=== PATIENT | male | born 1965 | race Caucasian/White ===

== ENCOUNTER 2019-01-09 19:21 | Inpatient (IN) | payer BC, SELFPAY ==
[2019-01-09 20:18] LABS: #Eosinphils 0.3 thou/uL (0.0-0.7); #Lymphocytes 2.3 thou/uL (1.20-3.40); #Monocytes 0.7 thou/uL (0.11-0.59); #Neutrophils 2.6 thou/uL (1.40-6.50); %Basophils 0.6 % (0.0-1.0); %Eosinophils 4.3 % (0.0-10.0); %Lymphocytes 39.1 % (21.0-51.0); %Monocytes 11.4 % (0.0-10.0); %Neutrophils 44.6 % (42.0-75.0); Hemoglobin 10.5 g/dL (14.0-18.0); Mean Corpuscular HGB CONC 32.3 g/dL (32.0-36.0); Mean Corpuscular Hemoglobin 24.3 pg (27.0-31.0); Mean Corpuscular Volume 75.3 fL (78.0-98.0); Mean Platelet Volume 7.6 fL (7.4-10.4); Platelet Count 363 thou/uL (130-400); RBC Distribution Width 17.5 % (11.5-14.5); Red Blood Cell (RBC) Count 4.31 mill/uL (4.70-6.10); White Blood Cell (WBC) Count 5.9 thou/uL (4.8-10.8)
[2019-01-09] MEDS ORDERED: Diltiazem HCl 125 MG, Admixture Fee 1 EACH in Sodium Chloride 0.9% 100 ML IVPB SCH (20:30)
--- NOTE | 2019-01-09 20:30 | RAD ---
Chest one view HISTORY: Chest pain. FINDINGS: No comparison. Cardiac silhouette is magnified and enlarged. Pulmonary vasculature upper li mits of normal. Mediastinum is midline. No lobar consolidation or evidence of pneumothorax. IMPRESSION: Cardiomegaly. Borderline pulmonary vascular congestion.
[2019-01-09] MEDS ORDERED: Nitroglycerin 2% Ointment 1 INCH/1 GM Packet ONE (20:32)
[2019-01-09] MEDS ORDERED: Nitroglycerin 0.4 MG TAB 1 EACH ONE (20:32)
[2019-01-09 20:40] LABS: ALT (SGPT) 15 U/L (8-55); AST (SGOT) 20 U/L (5-34); Albumin 3.9 g/dL (3.5-5.0); Alkaline Phosphatase 100 U/L (40-150); Anion Gap 16 mmol/L (10-20); BUN (Urea Nitrogen) 9 mg/dL (8.4-25.7); Bilirubin, Total 0.2 mg/dL (0.2-1.2); Calc. Creatinine Clearance 0 mL/min (70-130); Calcium 7.9 mg/dL (7.8-10.44); Carbon Dioxide 22 mmol/L (22-29); Chloride 110 mmol/L (98-107); Estimated GFR-MDRD Greater than 90; Glucose 116 mg/dL (70-105); Magnesium 2.1 mg/dL (1.6-2.6); Protein, Total 6.9 g/dL (6.0-8.3); Sodium 144 mmol/L (136-145)
[2019-01-09] MEDS ORDERED: Aspirin Chewable 81 MG TAB ONE (20:46)
[2019-01-09 20:48] LABS: CK (CPK) 124 U/L (30-200); Lipase 35 U/L (8-78)
[2019-01-09] MEDS ORDERED: Morphine 4 MG/ML VIAL ONE (21:20)
[2019-01-10 01:03] LABS: Bilirubin Negative (Negative); Blood, Urine Negative (Negative); Clarity Clear (Clear); Glucose, Urine (Dipstick) Normal (Negative); Leukocyte Negative Leu/uL (Negative); Nitrite Negative (Negative); Protein, Urine (Dipstick) 20 mg/dL (Neg-Trace); Urobilinogen Normal mg/dL (Less than 2)
[2019-01-10] MEDS ORDERED: Labetalol HCl 100 MG/20 ML VIAL ONE (03:54)
[2019-01-10] MEDS ORDERED: Ondansetron ODT 4 MG TAB PO PRN (04:02)
[2019-01-10] MEDS ORDERED: Acetaminophen 650 MG Suppository PR PRN (04:02)
[2019-01-10] MEDS ORDERED: Nitroglycerin 0.4 MG TAB (25 Tab Bottle) SL PRN (04:04)
[2019-01-10] MEDS ORDERED: Ondansetron ODT 4 MG TAB ONE (04:06)
[2019-01-10] MEDS ORDERED: Labetalol 100 MG TAB ONE (04:06)
[2019-01-10] MEDS ORDERED: cloNIDine 0.1 MG TAB ONE (04:06)
[2019-01-10] MEDS ORDERED: Morphine 2 MG/ML SYRINGE ONE (04:20)
[2019-01-10] MEDS ORDERED: Nitroglycerin 50 MG/250 ML BOT 250 ML ONE (04:43)
[2019-01-10] MEDS ORDERED: Acetaminophen 1,000 MG in Premix Bag 1 BAG IVPB SCH (05:00)
[2019-01-10] MEDS ORDERED: Nitroglycerin 50 MG/250 ML BOT 250 ML IVPB SCH (05:00)
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
[2019-01-10] MEDS ORDERED: Nitroglycerin 2% Ointment 1 INCH/1 GM Packet TOP SCH (06:00)
[2019-01-10 06:19] VITALS: BMI 53.1
[2019-01-10] MEDS: Promethazine HCl 25 MG/ML VIAL IM/IV PRN ×3 (06:26→17:50)
[2019-01-10] MEDS ORDERED: Ondansetron PF 4 MG/2 ML Vial IVP PRN (06:28)
[2019-01-10] MEDS ORDERED: Ondansetron ODT 4 MG TAB SL PRN (06:28)
[2019-01-10] MEDS ORDERED: Sodium Chloride 0.9% 1,000 ML IV SCH (06:28)
[2019-01-10] MEDS: Ondansetron PF 4 MG/2 ML Vial IVP PRN ×2 (07:34→16:16)
[2019-01-10] MEDS: Carvedilol 25 MG TAB PO SCH ×2 (07:36→16:28)
[2019-01-10] MEDS: Lisinopril 10 MG TAB PO SCH (07:36)
[2019-01-10] MEDS: Acetaminophen 325 MG TAB PO PRN ×2 (07:36→12:09)
[2019-01-10] MEDS ORDERED: Morphine 4 MG/ML VIAL ONE (07:55)
[2019-01-10] MEDS ORDERED: Carvedilol 6.25 MG TAB PO SCH (08:00)
[2019-01-10] MEDS ORDERED: Aspirin Chewable 81 MG TAB PO SCH (09:00)
[2019-01-10] MEDS ORDERED: Enoxaparin Sodium 40 MG/0.4 ML SYRINGE SC SCH (09:00)
[2019-01-10] MEDS: cloNIDine 0.1 MG TAB PO PRN (09:10)
[2019-01-10] MEDS ORDERED: niCARdipine 50 MG in Sodium Chloride 0.9% 250 ML 230 ML IVPB SCH (09:45)
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
[2019-01-10] MEDS ORDERED: NIFEdipine XL 30 MG TAB PO SCH (14:15)
--- NOTE | 2019-01-10 14:24 | PDOC.HOSPP ---
- Subjective Encounter Date: 01/10/19 Encounter Time: 14:22 Subjective: 53 y/o male with morbid obesity, CAD , HTN admitted with worsening chest pain and elevated HTN. Chest pain is better but persists. - Objective Vital Signs & Weight: Vital Signs (12 hours) Temp Pulse Resp BP Pulse Ox 01/10/19 12:00 97.8 F 01/10/19 09:10 199/107 H 01/10/19 08:02 96 21 H 100 01/10/19 08:00 97 01/10/19 07:36 219/107 H 01/10/19 07:00 97.9 F 01/10/19 06:20 98.0 F 01/10/19 02:37 91 15 100 Weight Weight 436 lb 8.244 oz Most Recent Monitor Data Heart Rate from ECG 94 NIBP 155/85 NIBP BP-Mean 103 Respiration from ECG 20 SpO2 98 I&O: 01/09/19 01/10/19 01/11/19 06:59 06:59 06:59 Intake Total 350 Output Total 500 Balance -150 Result Diagrams: 01/09/19 20:11 01/09/19 20:11 Hospitalist ROS - Medication Medications: Active Medications Generic Name Dose Route Start Last Admin Trade Name Freq PRN Reason Stop Dose Admin Acetaminophen 650 mg 01/10/19 04:02 01/10/19 12:09 Tylenol PO 650 mg Q4H PRN Administration Headache/Fever/Mild Pain (1-3) Carvedilol 25 mg 01/10/19 08:00 01/10/19 07:36 Coreg PO 25 mg BID-WM MABLE Administration Clonidine 0.1 mg 01/10/19 04:03 01/10/19 09:10 Catapres PO 0.1 mg Q4H PRN Administration BP>160/100 Enoxaparin Sodium 40 mg 01/10/19 09:00 01/10/19 12:09 Lovenox SC 40 mg 0900 MABLE Administration Lisinopril 10 mg 01/10/19 09:00 01/10/19 07:36 Zestril PO 10 mg DAILY MABLE Administration Ondansetron HCl 4 mg 01/10/19 04:02 01/10/19 07:34 Zofran IVP 4 mg Q6H PRN Administration Nausea/Vomiting Promethazine HCl 12.5 mg 01/10/19 04:48 01/10/19 12:09 Phenergan IM/IV 12.5 mg Q6H PRN Administration Nausea/Vomiting - Exam General Appearance: awake alert General - other findings: morbidly obese Eye: anicteric sclera ENT: normocephalic atraumatic Neck: symmetric Heart: irregular Respiratory: no wheezes, no rales, no ronchi, normal chest expansion Gastrointestinal: soft, non-tender, non-distended, normal bowel sounds Extremities: 2+ LE edema Neurological: CN's grossly intact, no focal deficits Psychiatric: A&O x 3 Hosp A/P (1) Unstable angina Status: Acute (2) Accelerated hypertension Code(s): I10 - ESSENTIAL (PRIMARY) HYPERTENSION Status: Acute (3) Morbid (severe) obesity with alveolar hypoventilation Code(s): E66.2 - MORBID (SEVERE) OBESITY WITH ALVEOLAR HYPOVENTILATION Status : Acute (4) ROHIT (obstructive sleep apnea) Code(s): G47.33 - OBSTRUCTIVE SLEEP APNEA (ADULT) (PEDIATRIC) Status: Acute (5) Hypothyroid Code(s): E03.9 - HYPOTHYROIDISM, UNSPECIFIED Status: Acute (6) CAD (coronary artery disease) Code(s): I25.10 - ATHSCL HEART DISEASE OF [place] CORONARY ARTERY W/O ANG PCTRS Status: Acute - Plan Add imdure to coreg and lisinopril to get better BP control. Start anticoagulation with heparin. can move to telemetry.
[2019-01-10] MEDS ORDERED: Isosorbide Mononitrate (ER) 30 MG TAB PO SCH (14:30)
[2019-01-10 14:48] LABS: Hemoglobin 9.8 g/dL (14.0-18.0); Platelet Count 309 thou/uL (130-400)
[2019-01-10] MEDS: Heparin 10,000 UNITS/ 10 ML VIAL SLOW IVP SCH ×2 (16:18→23:14)
[2019-01-10] MEDS: Heparin 25,000 units/D5W 500 ML IVPB SCH (16:19)
[2019-01-10] MEDS: Ketorolac Tromethamine 30 MG/ML VIAL IVP SCH (17:50)
[2019-01-10] MEDS: Morphine 2 MG/ML SYRINGE SLOW IVP PRN (20:23)
--- NOTE | 2019-01-11 00:33 | CON ---
DATE OF CONSULTATION: 01/10/2019 REASON FOR CONSULTATION: Chest pain. HISTORY OF PRESENT ILLNESS: Mr. Doe is a 53-year-old gentleman with a history of chronic atrial fibrillation, previous episodes of chest pain and severe obesity, who presented with some chest pain. The patient states he has been having chest pain continuously for a day. It is to the left of the midline and goes out in a lateral location and feels intense. It is somewhat worse with a deep breath. It does not feel like a pressure. PAST MEDICAL HISTORY: 1. He has had a history of a similar chest pain in 2016 and 2017. 2. He has chronic atrial fibrillation. He has been on Savaysa for that. Other medicines are carvedilol and digoxin. 3. The patient otherwise is very inactive. He says he can walk to some degree with a cane, but it is difficult to ambulate. 4. He has sleep apnea. REVIEW OF SYSTEMS: CONSTITUTIONAL: Positive for weight gain, he feels about 80 pounds. He has been very inactive in the last year, he may have gained another 80 pounds. He does have fatigue. He has severe sleep apnea. VISION: No changes. HEARING: No changes. PULMONARY: No cough or wheezing. GASTROINTESTINAL: No nausea, vomiting, or diarrhea. SKIN: No rashes. NEUROLOGIC: No unilateral weakness or numbness. PSYCHIATRIC: No unusual depression or anxiety. PHYSICAL EXAMINATION: GENERAL: This is a pleasant gentleman. VITAL SIGNS: He is 6 feet 4 inches tall, 436 pounds, BMI is 53. HEENT: Eyes; sclerae nonicteric. Mouth; mucous membranes moist. NECK: Supple. No lymphadenopathy. LUNGS: Clear. No wheezing, rales, or rhonchi. CARDIAC: Irregularly irregular. No murmur, rub, or gallop. ABDOMEN: Obese, nontender. No hepatosplenomegaly. EXTREMITIES: Warm, dry. No clubbing or cyanosis. There is mild peripheral edema. I do feel pedal pulses in the dorsalis pedis. I cannot feel the femoral pulses due to his obesity. DIAGNOSTIC STUDIES: EKG; atrial fibrillation. No acute changes. Troponin levels were all negative. BNP 80.7. ASSESSMENT: 1. Chest pain, atypical for angina. 2. Severe morbid obesity. 3. Chronic atrial fibrillation. PLAN: 1. Give him a trial of Toradol. 2. Echocardiogram. 3. Options will be likely very limited in this gentleman. With this degree of obesity, catheterization may be very difficult and we will need to see if the laborer mine table is able to support his weight. The patient certainly needs weight loss shelter for his overall health. We will follow with you. Job ID: [id number]
[2019-01-11] MEDS: Ketorolac Tromethamine 30 MG/ML VIAL IVP SCH ×3 (01:34→18:15)
[2019-01-11] MEDS: Promethazine HCl 25 MG/ML VIAL IM/IV PRN ×3 (01:39→20:25)
[2019-01-11] MEDS: cloNIDine 0.1 MG TAB PO PRN ×3 (05:05→20:25)
[2019-01-11 05:48] LABS: #Basophils 0.1 thou/uL (0.0-0.2); #Eosinphils 0.5 thou/uL (0.0-0.7); #Lymphocytes 1.5 thou/uL (1.20-3.40); #Monocytes 0.7 thou/uL (0.11-0.59); #Neutrophils 4.5 thou/uL (1.40-6.50); %Basophils 1.7 % (0.0-1.0); %Monocytes 9.9 % (0.0-10.0); %Neutrophils 61.5 % (42.0-75.0); Hemoglobin 9.8 g/dL (14.0-18.0); Mean Corpuscular HGB CONC 32.1 g/dL (32.0-36.0); Mean Corpuscular Hemoglobin 24.3 pg (27.0-31.0); Mean Corpuscular Volume 75.7 fL (78.0-98.0); Mean Platelet Volume 8.5 fL (7.4-10.4); Platelet Count 285 thou/uL (130-400); RBC Distribution Width 16.9 % (11.5-14.5); Red Blood Cell (RBC) Count 4.03 mill/uL (4.70-6.10); White Blood Cell (WBC) Count 7.3 thou/uL (4.8-10.8)
[2019-01-11 06:12] LABS: Iron 104 ug/dL (65-175); Iron Binding Capacity, Total 524 mcg/dL (261-462)
[2019-01-11 06:13] LABS: Digoxin Less than 0.15 ng/mL (0.8-2.0)
[2019-01-11] MEDS: Heparin 10,000 UNITS/ 10 ML VIAL SLOW IVP SCH (06:14)
[2019-01-11 06:16] LABS: Anion Gap 15 mmol/L (10-20); BUN (Urea Nitrogen) 12 mg/dL (8.4-25.7); Calc. Creatinine Clearance 263 mL/min (70-130); Carbon Dioxide 25 mmol/L (22-29); Chloride 101 mmol/L (98-107); Estimated GFR-MDRD 89; Glucose 100 mg/dL (70-105); Iron 103 ug/dL (65-175); Sodium 137 mmol/L (136-145)
[2019-01-11] MEDS: Morphine 2 MG/ML SYRINGE SLOW IVP PRN ×3 (08:12→20:27)
[2019-01-11] MEDS: Carvedilol 25 MG TAB PO SCH ×2 (08:13→18:15)
[2019-01-11] MEDS: Lisinopril 10 MG TAB PO SCH (08:13)
[2019-01-11] MEDS ORDERED: Isosorbide Mononitrate (ER) 30 MG TAB PO SCH (09:00)
[2019-01-11] MEDS ORDERED: NIFEdipine XL 30 MG TAB PO SCH (09:00)
[2019-01-11] MEDS: Acetaminophen 325 MG TAB PO PRN ×2 (11:09→20:35)
[2019-01-11] MEDS: Heparin 25,000 units/D5W 500 ML IVPB SCH (11:22)
[2019-01-11] MEDS ORDERED: Potassium Chloride 20 MEQ TAB PO SCH (13:45)
[2019-01-11] MEDS ORDERED: Lisinopril 10 MG TAB PO SCH (13:45)
[2019-01-11] MEDS ORDERED: Furosemide 40 MG/4 ML VIAL SLOW IVP SCH (13:45)
[2019-01-11] MEDS ORDERED: Digoxin 0.125 MG TAB PO SCH (14:00)
--- NOTE | 2019-01-11 14:11 | PRG ---
DATE OF SERVICE: 01/11/2019 SUBJECTIVE: Mr. Doe is doing better. His chest pain is improved. OBJECTIVE: VITAL SIGNS: His blood pressure is still elevated 173/82, pulse 80 and it is irregular. LUNGS: Clear. CARDIAC: Irregularly irregular. ABDOMEN: Obese, nontender. EXTREMITIES: Mild edema. ASSESSMENT: 1. Chronic atrial fibrillation. 2. Chest pain, musculoskeletal. 3. The patient said he had a heart catheterization in 3 years ago at [facility] in [place], said he had normal coronary arteries. 4. Morbid obesity. 5. Hypertension. PLAN: 1. Lisinopril for blood pressure. 2. Carvedilol and digoxin for heart rate control. 3. Resume oral anticoagulants. 4. Probably home tomorrow if doing well. 5. Discussed bariatric surgery as a long-term strategy to likely dramatically improve the patient's prognosis, he is considering that. Job ID: [id number]
--- NOTE | 2019-01-11 14:36 | PDOC.HOSPP ---
- Subjective Encounter Date: 01/11/19 Encounter Time: 07:00 Subjective: Pt seen for followup re; chest pain. Feels better. - Objective Vital Signs & Weight: Vital Signs (12 hours) Temp Pulse Resp BP BP Pulse Ox 01/11/19 14:25 173/82 H 01/11/19 14:24 89 01/11/19 08:13 173/82 H 01/11/19 07:50 96 01/11/19 07:40 97.9 F 89 18 178/91 H 95 01/11/19 05:05 173/82 H 01/11/19 04:00 97.3 F L 81 20 173/82 H 98 Weight Weight 436 lb 8.244 oz Most Recent Monitor Data Heart Rate from ECG 86 NIBP 141/79 NIBP BP-Mean 95 Respiration from ECG 13 SpO2 96 I&O: 01/10/19 01/11/19 01/12/19 06:59 06:59 06:59 Intake Total 1027.3 756 Output Total 1100 700 Balance -72.7 56 Result Diagrams: 01/11/19 05:10 01/11/19 05:10 Additional Labs: Labs and MARs reviewed by me EKG Reviewed by me: Yes (Tele; a. fib) Hospitalist ROS - Review of Systems Cardiovascular: reports: chest pain. denies: palpitations, orthopnea, paroxysmal noc. dyspnea, edema, light headedness Gastrointestinal: denies: nausea, vomitting, abdominal pain, diarrhea, constipation, melena, hematochezia - Medication Medications: Active Medications Generic Name Dose Route Start Last Admin Trade Name Freq PRN Reason Stop Dose Admin Acetaminophen 650 mg 01/10/19 04:02 01/11/19 11:09 Tylenol PO 650 mg Q4H PRN Administration Headache/Fever/Mild Pain (1-3) Carvedilol 25 mg 01/10/19 08:00 01/11/19 08:13 Coreg PO 25 mg BID-WM MABLE Administration Clonidine 0.1 mg 01/10/19 04:03 01/11/19 05:05 Catapres PO 0.1 mg Q4H PRN Administration BP>160/100 Digoxin 0.125 mg 01/11/19 14:00 01/11/19 14:24 Lanoxin PO 01/11/19 16:00 0.125 mg NOW MABLE Administration Furosemide 40 mg 01/11/19 13:45 01/11/19 14:25 Lasix SLOW IVP 01/11/19 15:45 40 mg NOW MABLE Administration Heparin Sodium (Porcine) 0 units 01/10/19 14:30 01/11/19 06:14 Heparin 1,000 Units/Ml (10 Ml) SLOW IVP 4,000 unit ASDIR MABLE Administration Protocol Ketorolac Tromethamine 30 mg 01/10/19 18:00 01/11/19 11:09 Toradol IVP 01/15/19 18:01 30 mg 0200,1000,1800 MABLE Administration Lisinopril 10 mg 01/11/19 13:45 01/11/19 14:25 Zestril PO 01/11/19 15:45 10 mg NOW MABLE Administration Morphine Sulfate 2 mg 01/10/19 08:22 01/11/19 08:12 Morphine SLOW IVP 2 mg Q4H PRN Administration Chest Pain Ondansetron HCl 4 mg 01/10/19 04:02 01/10/19 16:16 Zofran IVP 4 mg Q6H PRN Administration Nausea/Vomiting Potassium Chloride 40 meq 01/11/19 13:45 01/11/19 14:24 K-Dur PO 01/11/19 15:45 40 meq NOW MABLE Administration Promethazine HCl 12.5 mg 01/10/19 04:48 01/11/19 12:00 Phenergan IM/IV 12.5 mg Q6H PRN Administration Nausea/Vomiting - Exam General - other findings: Morbid obesity Eye: anicteric sclera ENT: moist mucosa Neck: supple Heart: irregular Respiratory: CTAB, no rales Gastrointestinal: soft, non-tender Skin: no rashes Psychiatric: normal affect, normal behavior Hosp A/P (1) Chest pain Code(s): R07.9 - CHEST PAIN, UNSPECIFIED Status: Acute (2) HTN (hypertension) Code(s): I10 - ESSENTIAL (PRIMARY) HYPERTENSION Status: Chronic (3) Morbid obesity Code(s): E66.01 - MORBID (SEVERE) OBESITY DUE TO EXCESS CALORIES Status: Chronic (4) Hypothyroid Code(s): E03.9 - HYPOTHYROIDISM, UNSPECIFIED Status: Chronic - Plan out of bed/ambulate Likely MSK etiology for chest pain, continue toradol. Continue lisinopril and carvedilol. Continue synthroid.
[2019-01-11] MEDS: Apixaban 5 MG TAB PO SCH (20:25)
[2019-01-11] MEDS ORDERED: Iron, Sodium Ferric Gluconate 250 MG in Sodium Chloride 0.9% 100 ML IVPB SCH (21:00)
[2019-01-11] MEDS: Iron Sucrose Complex 200 MG in Sodium Chloride 0.9% 100 ML IVPB SCH (21:31)
[2019-01-12] MEDS: Ketorolac Tromethamine 30 MG/ML VIAL IVP SCH ×2 (00:46→10:04)
[2019-01-12] MEDS: Acetaminophen 325 MG TAB PO PRN (03:07)
[2019-01-12] MEDS: Promethazine HCl 25 MG/ML VIAL IM/IV PRN (03:08)
[2019-01-12] MEDS: Morphine 2 MG/ML SYRINGE SLOW IVP PRN ×2 (05:17→12:28)
[2019-01-12 05:36] LABS: Anion Gap 13 mmol/L (10-20); BUN (Urea Nitrogen) 14 mg/dL (8.4-25.7); Calc. Creatinine Clearance 231 mL/min (70-130); Calcium 8.2 mg/dL (7.8-10.44); Carbon Dioxide 27 mmol/L (22-29); Chloride 102 mmol/L (98-107); Estimated GFR-MDRD 77; Glucose 103 mg/dL (70-105); Potassium 3.8 mmol/L (3.5-5.1); Sodium 138 mmol/L (136-145)
[2019-01-12] MEDS ORDERED: Digoxin 0.125 MG TAB PO SCH (09:00)
[2019-01-12] MEDS ORDERED: Lisinopril 20 MG TAB PO SCH (09:00)
[2019-01-12] MEDS: Apixaban 5 MG TAB PO SCH (09:59)
[2019-01-12] MEDS: Carvedilol 25 MG TAB PO SCH (10:00)
[2019-01-12] MEDS: Iron Sucrose Complex 200 MG in Sodium Chloride 0.9% 100 ML IVPB SCH (10:11)
[2019-01-12 13:07] VITALS: BP 132/88; TEMP 97.8
--- NOTE | 2019-01-12 14:06 | DIS ---
DATE OF ADMISSION: 01/09/2019 DATE OF DISCHARGE: 01/12/2019 PRIMARY CARE PROVIDER: Dr. Mitch Hahn, in [place], [place]. DISCHARGE DIAGNOSES: 1. Hypertensive urgency. 2. Chest pain, most likely secondary to musculoskeletal etiology. 3. Microcytic anemia. 4. Atrial fibrillation with rapid ventricular response. CONSULTATIONS DURING THIS HOSPITALIZATION: Cardiology, Dr. Garsia. CONDITION OF PATIENT ON THE DAY OF DISCHARGE: Stable. I assessed Mr. Doe on the day of discharge. He reports that chest pain has improved. Vital signs are stable. S1 and S2 are heard, irregular. Lungs are clear to auscultation bilaterally. DISCHARGE MEDICATIONS: 1. Carvedilol 25 mg 2 times a day. 2. Digoxin 125 mcg daily. 3. Gabapentin 600 mg 3 times a day. 4. Levothyroxine 25 mcg daily. 5. Montelukast 10 mg daily. 6. Ferrous sulfate 325 mg daily. 7. Lisinopril 20 mg daily. 8. Savaysa as directed by his primary care provider. FOLLOWUP APPOINTMENTS: The patient is advised to follow up with primary care provider in 3 to 5 days' time. HOSPITAL COURSE: Mr. Doe is a pleasant 53-year-old gentleman, who was admitted to [facility] on January 09, 2019 for chest pain and hypertensive urgency. Please refer to Dr. Guaman's history and physical note dated January 10, 2019 for further details. He was initially treated with a Cardene drip in the critical care unit. He was seen by Cardiology and Pulmonary and Critical Care Medicine Services. Blood pressure is improved. He was also found to have microcytic anemia. His iron level was in the normal range at 104. Total iron binding capacity was elevated at 524. Ferritin was low at 19.01. He has been started on iron supplements. Cardiology Service felt that his chest pain was most likely secondary to musculoskeletal etiology. He was started on anti-inflammatories with improvement in his pain. He is being discharged home in a stable condition. On the day of discharge, he has a normal chem 7, with creatinine of 1.01. Many thanks for allowing me to participate in your patient's care. Please feel free to contact me with any questions or concerns. The patient has also been advised to follow up with primary care provider for management of microcytic anemia. DISCHARGE DESTINATION: Home. TIME SPENT: Total amount of time spent coordinating this discharge: 32 minutes. Job ID: [id number]
[2019-01-13] MEDS ORDERED: Ferrous Sulfate 325 MG TAB PO SCH (08:00)
== END 2019-01-12 15:11 | disposition home or self-care (01) | DRG 305 ==
LOC: ERS 19:21 → OBSVTOIN 22:17 → ERHOLD 22:17 → CCU 01-10 06:03 → 2NO 01-10 19:07
PROVIDERS: ADMIT Hospitalist; ATTEND Hospitalist
DX: I16.0 Hypertensive urgency (principal); Z68.43 Body mass index [BMI] 50.0-59.9, adult; E66.2 Morbid (severe) obesity with alveolar hypoventilation; R07.89 Other chest pain; D50.9 Iron deficiency anemia, unspecified; R73.9 Hyperglycemia, unspecified; E03.9 Hypothyroidism, unspecified; I25.10 Atherosclerotic heart disease of native coronary artery without angina pectoris; I48.2 Chronic atrial fibrillation; Z79.01 Long term (current) use of anticoagulants; I25.2 Old myocardial infarction; Z88.1 Allergy status to other antibiotic agents; Z88.8 Allergy status to other drugs, medicaments and biological substances
CPT/HCPCS: 36415; 71045; 80048; 80053; 80162; 81003; 82550; 82728; 83540; 83550; 83690; 83735; 83880; 84484; 85014; 85018; 85025; 85049; 85379; 85730; 93005; 94660; 96365; 96366; 96368; 96375; 96376; J0131; J1644; J1650; J1756; J1885; J1940; J2270; J2405; J2550; J3490; J7050; Q0162

== ENCOUNTER 2019-06-02 20:22 | Inpatient (IN) | payer BC ==
[2019-06-02] MEDS ORDERED: Diltiazem 125 MG/25 ML ONE (20:26)
[2019-06-02 21:02] LABS: Hemoglobin 14.8 g/dL (14.0-18.0); Mean Corpuscular HGB CONC 34.4 g/dL (32.0-36.0); Mean Corpuscular Hemoglobin 30.8 pg (27.0-31.0); Mean Corpuscular Volume 89.3 fL (78.0-98.0); Mean Platelet Volume 7.7 fL (7.4-10.4); Platelet Count 237 thou/uL (130-400); RBC Distribution Width 14.4 % (11.5-14.5); White Blood Cell (WBC) Count 6.8 thou/uL (4.8-10.8)
[2019-06-02 21:05] LABS: Eosinophils 1 % (0-10); Lymphocytes 28 % (21-51); MDiff Complete? YES; Monocytes 5 % (0-10); Neutrophil 66 % (42-75); Platelet Morphology Comment Appears Adequate; RBC Morphology Normal
[2019-06-02 21:06] LABS: ALT (SGPT) 16 U/L (8-55); AST (SGOT) 25 U/L (5-34); Albumin 4.4 g/dL (3.5-5.0); Alkaline Phosphatase 104 U/L (40-110); Anion Gap 22 mmol/L (10-20); BUN (Urea Nitrogen) 14 mg/dL (8.4-25.7); Bilirubin, Total 0.8 mg/dL (0.2-1.2); CK (CPK) 321 U/L (30-200); Calc. Creatinine Clearance 0 mL/min (70-130); Calcium 8.9 mg/dL (7.8-10.44); Carbon Dioxide 23 mmol/L (22-29); Chloride 100 mmol/L (98-107); Estimated GFR-MDRD 77; Globulin 3.4 g/dL (2.4-3.5); Glucose 99 mg/dL (70-105); Potassium 4.3 mmol/L (3.5-5.1); Protein, Total 7.8 g/dL (6.0-8.3); Sodium 141 mmol/L (136-145)
[2019-06-02 21:07] LABS: Digoxin Less than 0.15 ng/mL (0.8-2.0)
--- NOTE | 2019-06-02 21:07 | RAD ---
PORTABLE CHEST: History: Chest pain Comparison: 09-12-18 FINDINGS: Cardiomegaly. Mild vascular congestion. No consolidation or focal infiltrate. Small effusions are not excluded. Chest appears unchanged from the prior study. IMPRESSION: Cardiomegaly with mild to moderate vascular congestion. POS: AGW
[2019-06-02 22:25] LABS: Phosphorus 3.3 mg/dL (2.3-4.7)
[2019-06-03 00:10] LABS: Troponin I 0.032 ng/mL (< 0.028)
[2019-06-03] MEDS ORDERED: Acetaminophen 325 MG TAB ONE (00:11)
[2019-06-03] MEDS ORDERED: Acetaminophen 325 MG Suppository ONE (00:11)
[2019-06-03] MEDS ORDERED: Acetaminophen 325 MG TAB PO PRN (00:59)
[2019-06-03] MEDS ORDERED: traMADol HCl 50 MG TAB ONE ×3 (01:41→08:40)
[2019-06-03 03:13] LABS: Troponin I 0.037 ng/mL (< 0.028)
[2019-06-03] MEDS ORDERED: Ondansetron ODT 4 MG TAB PO PRN (03:34)
[2019-06-03] MEDS ORDERED: HYDROcodone/Acetaminophen 5/325 mg Tablet PO SCH (03:45)
[2019-06-03] MEDS ORDERED: Nitroglycerin 0.4 MG TAB (25 Tab Bottle) PO PRN (03:48)
[2019-06-03] MEDS ORDERED: Calcium Carbonate 500 MG ChewTAB PO PRN (03:49)
[2019-06-03] MEDS: Ondansetron PF 4 MG/2 ML Vial IVP PRN ×4 (03:57→23:57)
[2019-06-03] MEDS ORDERED: HYDROcodone/Acetaminophen 5/325 mg Tablet ONE (03:58)
[2019-06-03] MEDS ORDERED: Ondansetron PF 4 MG/2 ML Vial ONE ×3 (03:58→18:48)
[2019-06-03] MEDS ORDERED: Diltiazem 125 MG in Sodium Chloride 0.9% 100 ML IVPB SCH (04:00)
[2019-06-03] MEDS ORDERED: Digoxin 0.25 MG TAB PO SCH (04:00)
--- NOTE | 2019-06-03 04:14 | HP ---
PRIMARY CARE PHYSICIAN: Out of town. CHIEF COMPLAINT: Chest discomfort. HISTORY OF PRESENT ILLNESS: The patient is a 53-year-old male with morbid obesity, hypertension, and chronic atrial fibrillation, presented to the emergency room with above complaints. The chest discomfort started in the last 24 hours. It is progressively getting worse. He also had palpitations along with shortness of breath on mild exertion as well as lying down flat. He had some cough, which was essentially dry. No fever or chills reported. He states that he is compliant with all of his medication including digoxin, carvedilol. He also was recently started on Eliquis, the last dose was yesterday morning. No recent immobilization, travel reported. In the emergency room; his initial vital signs showed temperature of 98.1, pulse rate of 142, blood pressure of 190/119 with O2 saturation of 98% on 2 L of nasal cannula. He was started on Cardizem drip for atrial fibrillation with rapid ventricular response. Chest x-ray showed cardiomegaly. He also reported some nausea without any vomiting. No diaphoresis or syncope reported. PAST MEDICAL HISTORY: 1. Chronic atrial fibrillation. 2. Hypothyroidism. 3. Chronic pain syndrome. 4. Coronary artery disease, status post RI. 5. Hypertension. 6. Morbid obesity. 7. Obstructive sleep apnea, on CPAP. PAST SURGICAL HISTORY: 1. Left leg surgery. 2. Several knee surgeries. 3. Hernia repair. 4. The patient had a cardiac catheterization in 2016 that showed normal coronaries per last Cardiology note. ALLERGIES: THE PATIENT IS ALLERGIC TO CEPHALOSPORINS. CURRENT HOME MEDICATIONS: The patient is unable to recall all of his home medications. He states that he is on Eliquis, digoxin, carvedilol, gabapentin, levothyroxine. He is unable to recall the dosages of the meds. SOCIAL HISTORY: The patient works in [employer]. He lives out of town. He denies smoking or drug use. He drinks alcohol socially next. FAMILY HISTORY: Negative for premature coronary artery disease. REVIEW OF SYSTEMS: All other review of systems were reviewed and were found negative. PHYSICAL EXAMINATION: VITAL SIGNS: As discussed above. GENERAL: A 53-year-old male, in mild distress due to shoulder pain. HEENT: Head atraumatic and normocephalic. Sclerae anicteric. Moist mucous membranes. No oral lesion. NECK: Supple. No JVD. No carotid bruits. LUNGS: Showed diminished air entry at bilateral bases. No wheezing, rales, or rhonchi. HEART: S1 and S2 present. Irregularly irregular. No rubs or gallops. ABDOMEN: Soft. Bowel sounds present. No rebound or guarding. No costovertebral angle tenderness. EXTREMITIES: No calf tenderness. No clubbing or cyanosis. NEUROLOGIC: Grossly nonfocal. Moves all 4 extremities. PSYCHIATRY: Alert, awake, oriented x3. SKIN: Warm and dry. LYMPH NODES: No palpable lymph nodes in the neck. VASCULAR: Peripheral vascular radial pulses palpable bilaterally. MUSCULOSKELETAL: No joint swelling or tenderness. LABORATORY FINDINGS: CBC showed WBC 6.8 with hemoglobin 14.8, hematocrit 42.9, platelet of 237. Chemistry showed sodium 141, potassium 4.3, chloride 100, bicarb 23, BUN was 14, creatinine 1.01. Troponin was 0.032. CK was 321. Digoxin level was less than 0.15. Chest x-ray by my review as discussed above. EKG by my review showed atrial fibrillation with rapid ventricular response. IMPRESSION: 1. Atrial fibrillation with rapid ventricular response. 2. Chest discomfort, rule out acute coronary syndrome. 3. Type 2 myocardial infarction. 4. Hypertensive urgency. 5. Obstructive sleep apnea, on CPAP. 6. Chronic kidney disease, stage 2. 7. Chronic pain syndrome. PLAN: The patient will be monitored on the telemetry unit. We will continue Cardizem drip. Cardiology will be consulted. His digoxin level was less than 0.15. We will increase digoxin to 0.25 for now. We will resume carvedilol. We will also resume Eliquis. His last dose of Eliquis was yesterday morning per patient report. We will verify all other home medications. We will repeat troponin after 3 hours. The patient understands the above plan of care. Job ID: [id number]
[2019-06-03] MEDS ORDERED: Digoxin 0.5 MG/2 ML AMP SLOW IVP SCH (04:15)
[2019-06-03] MEDS ORDERED: Digoxin 0.5 MG/2 ML AMP ONE (04:33)
--- NOTE | 2019-06-03 07:47 | RAD ---
EXAM: XR Abdomen 2 View DATE: 06/03/2019 4:08 AM INDICATION: Nausea vomiting COMPARISON: None. FINDING: Lung bases are clear. No pneumoperitoneum is evident. Bowel gas pattern is unobstructed. No suspicious calcifications are evident. There is mild scattered degenerative change of the visualized osseous structures. IMPRESSION:No acute abnormality.
[2019-06-03] MEDS ORDERED: Promethazine HCl 25 MG/ML VIAL IM/IV PRN (08:21)
[2019-06-03] MEDS ORDERED: Promethazine HCl 25 MG/ML VIAL ONE (08:29)
[2019-06-03] MEDS ORDERED: Sodium Chloride 0.9% 100 ML ONE (08:30)
[2019-06-03] MEDS ORDERED: Famotidine 20 MG TAB ONE (08:41)
[2019-06-03] MEDS: Famotidine 20 MG TAB PO SCH ×2 (08:44→21:47)
[2019-06-03] MEDS: traMADol HCl 50 MG TAB PO PRN (08:45)
[2019-06-03] MEDS: Carvedilol 25 MG TAB PO SCH ×2 (08:55→20:45)
[2019-06-03] MEDS: Apixaban 5 MG TAB PO SCH ×2 (09:11→21:47)
[2019-06-03] MEDS ORDERED: Digoxin 0.25 MG TAB ONE (09:39)
[2019-06-03] MEDS: Digoxin 0.25 MG TAB PO SCH (09:41)
[2019-06-03] MEDS ORDERED: Diltiazem 125 MG/25 ML ONE (11:04)
[2019-06-03] MEDS ORDERED: Nitroglycerin 0.4 MG TAB 1 EACH ONE (11:33)
[2019-06-03] MEDS ORDERED: hydrALAZINE 20 MG/ML VIAL ONE (13:01)
[2019-06-03] MEDS: hydrALAZINE 20 MG/ML VIAL SLOW IVP PRN (13:10)
[2019-06-03] MEDS ORDERED: Labetalol HCl 100 MG/20 ML VIAL ONE (15:04)
[2019-06-03] MEDS: Labetalol HCl 100 MG/20 ML VIAL SLOW IVP PRN (15:10)
--- NOTE | 2019-06-03 18:00 | PDOC.EVN ---
Event Note - Event Note Event Note: Pt seen at various times today. Continues to have significantly elevated blood pressure. Discussed with pharmacist. Will transfer to CCU for esmolol drip.
[2019-06-03 21:34] VITALS: BMI 49.2
[2019-06-03] MEDS: Esmolol 2,500 MG/250 ML 250 ML IVPB SCH (21:44)
[2019-06-04] MEDS: Esmolol 2,500 MG/250 ML 250 ML IVPB SCH ×11 (00:07→23:41)
[2019-06-04 03:51] LABS: #Lymphocytes 1.1 thou/uL (1.20-3.40); #Monocytes 0.7 thou/uL (0.11-0.59); #Neutrophils 5.7 thou/uL (1.40-6.50); %Basophils 0.3 % (0.0-1.0); %Eosinophils 0.1 % (0.0-10.0); %Lymphocytes 14.2 % (21.0-51.0); %Monocytes 9.1 % (0.0-10.0); %Neutrophils 76.4 % (42.0-75.0); Hemoglobin 12.6 g/dL (14.0-18.0); Mean Corpuscular HGB CONC 32.3 g/dL (32.0-36.0); Mean Corpuscular Hemoglobin 29.2 pg (27.0-31.0); Mean Corpuscular Volume 90.2 fL (78.0-98.0); Mean Platelet Volume 7.9 fL (7.4-10.4); Platelet Count 190 thou/uL (130-400); RBC Distribution Width 13.8 % (11.5-14.5); Red Blood Cell (RBC) Count 4.32 mill/uL (4.70-6.10); White Blood Cell (WBC) Count 7.5 thou/uL (4.8-10.8)
[2019-06-04 04:09] LABS: ALT (SGPT) 16 U/L (8-55); AST (SGOT) 26 U/L (5-34); Alkaline Phosphatase 110 U/L (40-110); Anion Gap 17 mmol/L (10-20); BUN (Urea Nitrogen) 18 mg/dL (8.4-25.7); Calc. Creatinine Clearance 228 mL/min (70-130); Calcium 8.3 mg/dL (7.8-10.44); Carbon Dioxide 23 mmol/L (22-29); Chloride 98 mmol/L (98-107); Estimated GFR-MDRD 82; Glucose 121 mg/dL (70-105); Potassium 3.8 mmol/L (3.5-5.1); Sodium 134 mmol/L (136-145)
[2019-06-04] MEDS: Ondansetron PF 4 MG/2 ML Vial IVP PRN ×4 (05:24→22:15)
[2019-06-04] MEDS: hydrALAZINE 20 MG/ML VIAL SLOW IVP PRN ×3 (05:24→16:58)
[2019-06-04] MEDS: Digoxin 0.25 MG TAB PO SCH (07:33)
[2019-06-04] MEDS: Famotidine 20 MG TAB PO SCH ×2 (07:34→21:09)
[2019-06-04] MEDS: Apixaban 5 MG TAB PO SCH ×2 (07:34→21:09)
[2019-06-04] MEDS: Carvedilol 25 MG TAB PO SCH ×2 (07:34→16:58)
[2019-06-04] MEDS: Labetalol HCl 100 MG/20 ML VIAL SLOW IVP PRN ×2 (08:06→21:10)
[2019-06-04] MEDS: Morphine 4 MG/ML VIAL SLOW IVP PRN ×3 (08:22→23:39)
[2019-06-04] MEDS ORDERED: FLU VACC QS2019-20(6MOS UP)/PF 60 MCG/0.5 ML SYRINGE IM ONE (09:00)
[2019-06-04] MEDS ORDERED: Digoxin 0.5 MG/2 ML AMP SLOW IVP SCH (09:15)
[2019-06-04] MEDS ORDERED: Potassium Chloride 20 MEQ TAB PO SCH (09:15)
[2019-06-04] MEDS ORDERED: Furosemide 20 MG/2 ML VIAL SLOW IVP SCH (09:15)
[2019-06-04] MEDS: Lisinopril 20 MG TAB PO SCH (09:59)
--- NOTE | 2019-06-04 10:34 | CON ---
DATE OF CONSULTATION: REASON FOR CONSULTATION: Atrial fibrillation with a rapid ventricular response, palpitations, chest pain. HISTORY OF PRESENT ILLNESS: Mr. Doe is a very pleasant 53-year-old gentleman. He has a history of severe morbid obesity. He was here in the hospital with similar symptoms in January 2019. The patient was treated medically and then released. The patient has been going back to see his physician, I believe, in [place]. He came to the hospital on this occasion with shortness of breath, chest pain and palpitations, found to be in atrial fibrillation with a rapid rate. He does have chronic atrial fibrillation, but the rate is rapid on this occasion. MEDICATIONS: At home, he is on: 1. Carvedilol 25 mg twice a day. 2. Digoxin 0.125 mg a day. 3. Eliquis 5 mg twice a day. The patient reports that he has had a cardiac catheterization done in the [facility] in [place] in 2015 showing completely normal coronary arteries by report. ALLERGIES: TO CEPHALEXIN AND PROMETHAZINE. REVIEW OF SYSTEMS: CONSTITUTIONAL: No significant weight gain or loss. He had slowly been trying to lose weight, but he is extremely overweight. PULMONARY: No wheezing. CARDIAC: As outlined above. GASTROINTESTINAL: No nausea, vomiting, or diarrhea. SKIN: No rashes. NEUROLOGIC: No unilateral weakness or numbness. 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 Works at [employer]. Does not abuse alcohol. PHYSICAL EXAMINATION: GENERAL: This is a very pleasant gentleman. VITAL SIGNS: He is 6 feet 4 inches tall, 404 pounds, BMI is over 40. HEENT: Eyes; sclerae nonicteric. Mouth; mucous membranes moist. NECK: Supple. No lymphadenopathy. LUNGS: Clear. CARDIAC: Irregularly irregular. Distant heart sounds. ABDOMEN: Obese. EXTREMITIES: No clubbing. No cyanosis. There is minimal peripheral edema. SKIN: Warm and dry. PSYCHIATRIC: Mood and affect normal. NEUROLOGIC: Grossly normal. PERTINENT LABORATORY DATA: EKG initially shows atrial fibrillation with a rapid rate. Troponin 0.037. Type 2 demand ischemia. Potassium is 3.8, sodium is 134, but it was 141 on the . The patient has a history of normal left ventricular function on previous imaging. ASSESSMENT: 1. Chronic atrial fibrillation, now with increased rate. 2. Hypertension. 3. Normal coronary arteries by report. 4. History of sleep apnea. PLAN: 1. Increase carvedilol. 2. Increase digoxin. 3. Continue anticoagulation. 4. We will review records. My recollection was that he had an echocardiogram and we will need to recheck that. 5. Discussed bariatric surgery. If he indeed had normal cardiac catheterization and has normal left ventricular function, he would really be a great candidate. I suspect bariatric surgery will be life changing for him and markedly improve his quality of life and likely extending his life. Job ID: [id number]
--- NOTE | 2019-06-04 20:07 | PDOC.HOSPP ---
- Subjective Encounter Date: 06/04/19 Encounter Time: 19:00 Subjective: f/u for HTN urgency requiring Esmolol gtt, Coreg/Digoxin/Lisinopril. Also A-fib with variable rate on Digoxin/Coreg/Eliquis now rate-controlled. - Objective Vital Signs & Weight: Vital Signs (12 hours) Temp Pulse BP 06/04/19 16:58 147/88 H 06/04/19 16:00 98.2 F 06/04/19 12:00 97.7 F 06/04/19 10:40 147/88 H 06/04/19 09:59 147/88 H 06/04/19 09:46 91 06/04/19 08:06 91 166/108 H Weight Weight 404 lb 12.299 oz Most Recent Monitor Data Heart Rate from ECG 71 NIBP 165/113 NIBP BP-Mean 130 Respiration from ECG 15 SpO2 98 I&O: 06/03/19 06/04/19 06/05/19 06:59 06:59 06:59 Intake Total 1135 1438 Output Total 575 1925 Balance 560 -487 Result Diagrams: 06/04/19 03:11 06/04/19 03:11 Additional Labs: Laboratory Tests 06/02/19 06/02/19 06/02/19 20:36 20:36 20:36 Phosphorus 3.3 Magnesium 2.0 Troponin I 0.013 B-Natriuretic Peptide 38.9 TSH 3rd Generation 06/02/19 06/02/19 06/03/19 20:36 23:37 02:39 Phosphorus Magnesium Troponin I 0.032 H 0.037 H B-Natriuretic Peptide TSH 3rd Generation 3.0026 Radiology Reviewed by me: Yes (ABD x-ray - no acute process) EKG Reviewed by me: Yes (Tele - A-fib in 70's) Hospitalist ROS - Medication Medications: Active Medications Generic Name Dose Route Start Last Admin Trade Name Freq PRN Reason Stop Dose Admin Acetaminophen 650 mg 06/03/19 00:59 06/03/19 22:13 Tylenol PO 650 mg Q4H PRN Administration Headache/Fever/MILD Pain 1-3 Apixaban 5 mg 06/03/19 09:00 06/04/19 07:34 Eliquis PO 5 mg BID MABLE Administration Calcium Carbonate 1,000 mg 06/03/19 03:49 06/03/19 23:56 Tums PO 1,000 mg Q4H PRN Administration Heartburn or Indigestion Carvedilol 50 mg 06/04/19 17:00 06/04/19 16:58 Coreg PO 50 mg BID-WM MABLE Administration Digoxin 0.25 mg 06/03/19 09:00 06/04/19 07:33 Lanoxin PO 0.25 mg DAILY MABLE Administration Famotidine 20 mg 06/03/19 09:00 06/04/19 07:34 Pepcid PO 20 mg BID MABLE Administration Hydralazine HCl 10 mg 06/03/19 08:22 06/04/19 16:58 Apresoline SLOW IVP 10 mg Q6H PRN Administration SBP Greater Than 170 Esmolol HCl/Sodium Chloride 250 mls @ 0 mls/hr 06/03/19 18:00 06/04/19 19:28 Brevibloc Rtu IVPB 250 mls INF MABLE Administration Protocol Titrate Labetalol HCl 20 mg 06/03/19 14:18 06/04/19 08:06 Normodyne SLOW IVP 20 mg Q6H PRN Administration SBP Greater Than 170 Lisinopril 20 mg 06/04/19 09:00 06/04/19 09:59 Zestril PO 20 mg DAILY MABLE Administration Morphine Sulfate 4 mg 06/03/19 17:51 06/04/19 14:14 Morphine SLOW IVP 4 mg Q4H PRN Administration Pain Nitroglycerin 0.4 mg 06/03/19 03:48 06/03/19 11:35 Nitrostat PO 0.4 mg Q5MIN PRN Administration Chest Pain Ondansetron HCl 4 mg 06/03/19 03:34 06/04/19 16:31 Zofran IVP 4 mg Q6H PRN Administration Nausea/Vomiting Promethazine HCl 25 mg 06/03/19 08:21 06/03/19 08:30 Phenergan IM/IV 25 mg Q6H PRN Administration Nausea/Vomiting Tramadol HCl 50 mg 06/03/19 00:59 06/03/19 08:45 Ultram PO 50 mg Q4H PRN Administration Moderate Pain (4-6) - Exam General Appearance: NAD, awake alert Eye: PERRL, anicteric sclera ENT: normocephalic atraumatic, no oropharyngeal lesions Neck: supple, symmetric, no JVD, no thyromegaly Heart: no gallops, no rubs, normal peripheral pulses, irregular Respiratory - other findings: diminished in bases Gastrointestinal: soft, non-distended, normal bowel sounds Gastrointestinal - other findings: obese Extremities: no cyanosis, no clubbing, 1+ LE edema Skin: normal turgor, no lesions Neurological: cranial nerve grossly intact, no new deficit Musculoskeletal: normal tone, normal strength Psychiatric: normal affect, A&O x 3 Hosp A/P (1) Hypertensive urgency Code(s): I16.0 - HYPERTENSIVE URGENCY Status: Acute Plan: Continue current BP regimen, titrate to clinical response (2) Atrial fibrillation Code(s): I48.91 - UNSPECIFIED ATRIAL FIBRILLATION Status: Chronic Plan: Rate-controlled currently, continue Coreg/Digoxin/Eliquis (3) Morbid (severe) obesity with alveolar hypoventilation Code(s): E66.2 - MORBID (SEVERE) OBESITY WITH ALVEOLAR HYPOVENTILATION Status : Chronic (4) ROHIT (obstructive sleep apnea) Code(s): G47.33 - OBSTRUCTIVE SLEEP APNEA (ADULT) (PEDIATRIC) Status: Chronic (5) Hypothyroid Code(s): E03.9 - HYPOTHYROIDISM, UNSPECIFIED Status: Chronic Plan: Resume Levothyroxine (6) Morbid obesity Code(s): E66.01 - MORBID (SEVERE) OBESITY DUE TO EXCESS CALORIES Status: Chronic - 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
--- NOTE | 2019-06-04 20:14 | CON ---
DATE OF CONSULTATION: HISTORY OF PRESENT ILLNESS: Mr. Doe is a very pleasant gentleman, who is 6 feet 4 inches, 404 pounds. He says he has sleep apnea. Wears CPAP at home. He does not have any to him. He presented with complaints of chest discomfort and shortness of breath. He was significantly hypertensive. He subsequently has improved dramatically and says he feels 100% better than he felt yesterday. He is lying flat in bed. PAST MEDICAL HISTORY: Remarkable for, 1. Atrial fibrillation. 2. Hypothyroidism. 3. History of chronic pain. 4. History of myocardial infarction in the past with coronary artery disease. 5. Hypertension. 6. History of sleep apnea, on CPAP. He thinks he is on 12 cm water pressure. 7. History of multiple knee surgeries. 8. History of herniorrhaphy. 9. History of normal coronaries per cath in 2016. ALLERGIES: HE REPORTS ALLERGIES TO CEPHALOSPORIN. MEDICATIONS: Have been reviewed. 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 Lives out of town. Nonsmoker, nondrug user. FAMILY HISTORY: Negative for lung disease in early age. REVIEW OF SYSTEMS: Otherwise negative. PHYSICAL EXAMINATION: GENERAL: He is in no distress. He is lying flat in bed. VITAL SIGNS: Heart rates in the 70s, blood pressure is 155/88, respiratory rate 16, and oximetry is 98. HEAD AND NECK: Unremarkable. LUNGS: Clear. HEART: Regular rhythm. No S3. No murmur. ABDOMEN: Soft and nontender. EXTREMITIES: Without clubbing, cyanosis, or edema. NEURO: Nonfocal. LABORATORY DATA: White count 7.5, hemoglobin 12.6, and platelets 190. Electrolytes are unremarkable. Creatinine is 0.95. Chest x-ray suggestive of cardiomegaly, perhaps an early increase in interstitial markings. IMPRESSION: 1. Atrial fibrillation, probably creating some mild pulmonary edema. 2. Hypertension. 3. Morbid obesity with sleep apnea. He claims he is compliant with CPAP at home. 4. History of normal coronary arteries by report. Bariatric surgery per Dr. Garsia's recommendation would actually be a life changer for him. I would agree with this. I will follow the other physicians caring for him. Job ID: [id number]
[2019-06-04] MEDS: Gabapentin 300 MG CAP PO SCH (21:10)
[2019-06-04] MEDS: traMADol HCl 50 MG TAB PO PRN (22:43)
[2019-06-05] MEDS: Esmolol 2,500 MG/250 ML 250 ML IVPB SCH ×4 (01:59→11:29)
[2019-06-05] MEDS: Ondansetron PF 4 MG/2 ML Vial IVP PRN ×3 (04:08→18:09)
[2019-06-05] MEDS: Levothyroxine Sodium 25 MCG TAB PO SCH (05:50)
[2019-06-05] MEDS: Morphine 4 MG/ML VIAL SLOW IVP PRN (07:48)
[2019-06-05] MEDS: Gabapentin 300 MG CAP PO SCH ×3 (07:49→20:16)
[2019-06-05] MEDS: Famotidine 20 MG TAB PO SCH ×2 (07:49→20:16)
[2019-06-05] MEDS: Lisinopril 20 MG TAB PO SCH (07:49)
[2019-06-05] MEDS: Montelukast Sodium 10 mg Tablet PO SCH (07:50)
[2019-06-05] MEDS: Apixaban 5 MG TAB PO SCH ×2 (07:50→20:16)
[2019-06-05] MEDS: Carvedilol 25 MG TAB PO SCH ×2 (07:50→16:31)
[2019-06-05] MEDS: Digoxin 0.25 MG TAB PO SCH (07:50)
[2019-06-05] MEDS: HYDROcodone/Acetaminophen 5/325 mg Tablet PO PRN ×4 (12:52→23:57)
--- NOTE | 2019-06-05 16:25 | PRG ---
DATE OF SERVICE: 06/05/2019 SUBJECTIVE: Heri Doe had no complaints. OBJECTIVE: VITAL SIGNS: Heart rate in the 70s, blood pressure 111/80, and respiratory rates in the teens. LUNGS: Clear. HEART: Regular rhythm. ABDOMEN: Soft. He is chronically in atrial fibrillation. He says he has been in atrial fibrillation since he was in his 40s. He still has esmolol and Cardizem going would be a candidate to move out of the Critical Care Unit. LABORATORY DATA: White count yesterday was normal. There is no CBC today. Electrolytes are normal yesterday. There is no chem 7 today. IMPRESSION: Sleep apnea, sleeping on our device since he did not have anybody that could bring his home, CPAP up here. We will continue to follow. His sleep apnea is adequately controlled clinically. Job ID: [id number]
[2019-06-05] MEDS ORDERED: Furosemide 40 MG/4 ML VIAL SLOW IVP SCH (17:45)
[2019-06-05] MEDS ORDERED: Potassium Chloride 20 MEQ TAB PO SCH (17:45)
--- NOTE | 2019-06-05 17:56 | PRG ---
DATE OF SERVICE: 06/05/2019 SUBJECTIVE: Mr. Doe is doing much better. He is off the esmolol. OBJECTIVE: VITAL SIGNS: Blood pressure is improved, still 140/100, but better. Pulse is 70, it is atrial fibrillation, irregular. LUNGS: Clear. CARDIAC: Irregularly irregular. ABDOMEN: Obese, nontender. EXTREMITIES: There is still moderate edema. He had excellent diuresis yesterday. PLAN: 1. Coreg 50 mg twice a day. 2. Digoxin 0.25 mg a day. 3. Daily diuretic. 4. Continue on lisinopril. 5. Likely to be able to go home tomorrow. He will be an excellent candidate for a gastric sleeve in my opinion. The patient reports that he has had a cardiac catheterization at [facility], which was normal. The handwritten notes from the freight claim investigator indicated normal coronary arteries at that time. ASSESSMENT: 1. Atrial fibrillation, difficult to control but better now. 2. Hypertension. 3. Morbid obesity. 4. Normal coronary arteries in the catheterization in 2013, the patient should be able to be released home tomorrow. Job ID: [id number]
[2019-06-05] MEDS ORDERED: Mag-Al Plus 1200 MG/1200 MG/120 MG/30 ML UDCUP PO PRN (18:25)
--- NOTE | 2019-06-05 18:31 | PDOC.HOSPP ---
- Subjective Encounter Date: 06/05/19 Encounter Time: 18:25 Subjective: f/u for HTN urgency off Esmolol/Diltiazem gtt. BP improved overall. Pt c/o abd pain and some nausea when eating. States he needs to have a BM now. - Objective Vital Signs & Weight: Vital Signs (12 hours) Temp Pulse BP Pulse Ox 06/05/19 16:00 98.7 F 06/05/19 12:00 99 F 06/05/19 08:00 97.7 F 95 06/05/19 07:50 78 06/05/19 07:49 139/99 H 06/05/19 07:00 97.7 F Weight Weight 404 lb 12.299 oz Most Recent Monitor Data Heart Rate from ECG 74 NIBP 151/95 NIBP BP-Mean 113 Respiration from ECG 20 SpO2 87 I&O: 06/04/19 06/05/19 06/06/19 06:59 06:59 06:59 Intake Total 1135 3133 1066 Output Total 575 3125 1425 Balance 560 8 -359 Result Diagrams: 06/04/19 03:11 06/04/19 03:11 Additional Labs: Laboratory Tests 06/02/19 06/02/19 06/02/19 20:36 20:36 20:36 Phosphorus 3.3 Magnesium 2.0 Troponin I 0.013 B-Natriuretic Peptide 38.9 TSH 3rd Generation 06/02/19 06/02/19 06/03/19 20:36 23:37 02:39 Phosphorus Magnesium Troponin I 0.032 H 0.037 H B-Natriuretic Peptide TSH 3rd Generation 3.0026 Radiology Reviewed by me: Yes (ABD x-ray - negative) EKG Reviewed by me: Yes (Tele - A-fib) Hospitalist ROS - Medication Medications: Active Medications Generic Name Dose Route Start Last Admin Trade Name Freq PRN Reason Stop Dose Admin Acetaminophen 650 mg 06/03/19 00:59 06/03/19 22:13 Tylenol PO 650 mg Q4H PRN Administration Headache/Fever/MILD Pain 1-3 Hydrocodone Bitart/Acetaminophen 1 tab 06/05/19 12:29 06/05/19 16:31 [place] 5/325 PO 1 tab Q4H PRN Administration Pain Apixaban 5 mg 06/03/19 09:00 06/05/19 07:50 Eliquis PO 5 mg BID MABLE Administration Calcium Carbonate 1,000 mg 06/03/19 03:49 06/03/19 23:56 Tums PO 1,000 mg Q4H PRN Administration Heartburn or Indigestion Carvedilol 50 mg 06/04/19 17:00 06/05/19 16:31 Coreg PO 50 mg BID-WM MABLE Administration Digoxin 0.25 mg 06/03/19 09:00 06/05/19 07:50 Lanoxin PO 0.25 mg DAILY MABLE Administration Famotidine 20 mg 06/03/19 09:00 06/05/19 07:49 Pepcid PO 20 mg BID MABLE Administration Gabapentin 600 mg 06/04/19 21:00 06/05/19 14:36 Neurontin PO 600 mg TID MABLE Administration Hydralazine HCl 10 mg 06/03/19 08:22 06/04/19 16:58 Apresoline SLOW IVP 10 mg Q6H PRN Administration SBP Greater Than 170 Esmolol HCl/Sodium Chloride 250 mls @ 0 mls/hr 06/03/19 18:00 06/05/19 11:29 Brevibloc Rtu IVPB 250 mls INF MABLE Administration Protocol Titrate Labetalol HCl 20 mg 06/03/19 14:18 06/04/19 21:10 Normodyne SLOW IVP 20 mg Q6H PRN Administration SBP Greater Than 170 Levothyroxine Sodium 25 mcg 06/05/19 06:00 06/05/19 05:50 Synthroid PO 25 mcg 0600 MABLE Administration Lisinopril 20 mg 06/04/19 09:00 06/05/19 07:49 Zestril PO 20 mg DAILY MABLE Administration Montelukast Sodium 10 mg 06/05/19 09:00 06/05/19 07:50 Singulair PO 10 mg DAILY MABLE Administration Morphine Sulfate 4 mg 06/03/19 17:51 06/05/19 07:48 Morphine SLOW IVP 4 mg Q4H PRN Administration Pain Nitroglycerin 0.4 mg 06/03/19 03:48 06/03/19 11:35 Nitrostat PO 0.4 mg Q5MIN PRN Administration Chest Pain Ondansetron HCl 4 mg 06/03/19 03:34 06/05/19 18:09 Zofran IVP 4 mg Q6H PRN Administration Nausea/Vomiting Tramadol HCl 50 mg 06/03/19 00:59 06/04/19 22:43 Ultram PO 50 mg Q4H PRN Administration Moderate Pain (4-6) - Exam General Appearance: NAD, awake alert Eye: PERRL, anicteric sclera ENT: normocephalic atraumatic, no oropharyngeal lesions Neck: supple, symmetric, no JVD, no thyromegaly Heart: no gallops, no rubs, normal peripheral pulses, irregular Respiratory: CTAB, no wheezes, no rales Gastrointestinal: soft, non-distended, normal bowel sounds Gastrointestinal - other findings: mild TTP diffusely Extremities: no cyanosis, 1+ LE edema Skin: normal turgor, no lesions Neurological: cranial nerve grossly intact, no new deficit Musculoskeletal: normal tone, normal strength, no muscle wasting Psychiatric: normal affect, A&O x 3 Hosp A/P (1) Hypertensive urgency Code(s): I16.0 - HYPERTENSIVE URGENCY Status: Acute Plan: Resolved, continue current BP regimen (2) Atrial fibrillation Code(s): I48.91 - UNSPECIFIED ATRIAL FIBRILLATION Status: Chronic Plan: Rate controlled, continue Digoxin/Coreg/Eliquis (3) Morbid (severe) obesity with alveolar hypoventilation Code(s): E66.2 - MORBID (SEVERE) OBESITY WITH ALVEOLAR HYPOVENTILATION Status : Chronic (4) ROHIT (obstructive sleep apnea) Code(s): G47.33 - OBSTRUCTIVE SLEEP APNEA (ADULT) (PEDIATRIC) Status: Chronic (5) Hypothyroid Code(s): E03.9 - HYPOTHYROIDISM, UNSPECIFIED Status: Chronic Plan: Continue Levothyroxine (6) Morbid obesity Code(s): E66.01 - MORBID (SEVERE) OBESITY DUE TO EXCESS CALORIES Status: Chronic Plan: Referral for evaluation of gastric sleeve procedure - Plan out of bed/ambulate, DVT proph w/SCDs Continue supportive mgmt Continue Coreg/Digoxin/Eliquis Nocturnal BiPAP PT for mobilization Bowel regimen Home in am 06/06/19
[2019-06-05] MEDS ORDERED: diphenhydrAMINE 25 MG CAP PO PRN (19:48)
[2019-06-06] MEDS: Ondansetron PF 4 MG/2 ML Vial IVP PRN ×2 (00:02→09:09)
[2019-06-06] MEDS: HYDROcodone/Acetaminophen 5/325 mg Tablet PO PRN ×3 (03:54→14:55)
[2019-06-06 04:59] LABS: Anion Gap 11 mmol/L (10-20); BUN (Urea Nitrogen) 14 mg/dL (8.4-25.7); Calc. Creatinine Clearance 194 mL/min (70-130); Calcium 8.8 mg/dL (7.8-10.44); Carbon Dioxide 29 mmol/L (22-29); Chloride 99 mmol/L (98-107); Estimated GFR-MDRD 68; Glucose 99 mg/dL (70-105); Potassium 3.3 mmol/L (3.5-5.1); Sodium 136 mmol/L (136-145)
[2019-06-06] MEDS ORDERED: Furosemide 40 MG/4 ML VIAL SLOW IVP SCH ×2 (05:00→06:00)
[2019-06-06] MEDS ORDERED: Potassium Chloride 20 MEQ TAB PO SCH ×2 (05:00→12:00)
[2019-06-06] MEDS: Levothyroxine Sodium 25 MCG TAB PO SCH (05:05)
[2019-06-06] MEDS: Digoxin 0.25 MG TAB PO SCH (07:52)
[2019-06-06] MEDS: Famotidine 20 MG TAB PO SCH (07:53)
[2019-06-06] MEDS: Gabapentin 300 MG CAP PO SCH ×2 (07:53→14:55)
[2019-06-06] MEDS: Montelukast Sodium 10 mg Tablet PO SCH (07:53)
[2019-06-06] MEDS: Lisinopril 20 MG TAB PO SCH (07:53)
[2019-06-06 07:54] VITALS: BP 138/100
[2019-06-06] MEDS: Apixaban 5 MG TAB PO SCH (07:54)
[2019-06-06] MEDS: Carvedilol 25 MG TAB PO SCH (07:54)
--- NOTE | 2019-06-06 09:56 | PRG ---
DATE OF SERVICE: 06/06/2019 SUBJECTIVE: Mr. Doe is doing better today. He is up in the chair. OBJECTIVE: VITAL SIGNS: His blood pressure this morning is 138/100, but then the repeat was 103/57, I doubt that is accurate; pulse is 60 to 70, irregular. LUNGS: Clear. CARDIAC: Irregularly irregular. ABDOMEN: Obese, nontender. EXTREMITIES: There is only iodl-wa-dxihxfym edema. LABORATORY DATA: Potassium 3.3. ASSESSMENT: 1. Atrial fibrillation, chronic, rate better controlled. 2. Normal coronary arteries on catheterization in 2013. 3. Hypertension, improved. PLAN: 1. He is on carvedilol 50 mg twice a day. 2. Apixaban 5 mg twice a day. 3. Digoxin 0.25 mg a day. 4. Lisinopril 20 mg a day. 5. Torsemide 10 mg a day starting tomorrow. 6. Potassium 10 mEq a day starting tomorrow. I will sign off. The patient can be released home from our standpoint couple of weeks. I discussed again with the patient to be an excellent candidate for bariatric surgery. Job ID: [id number]
--- NOTE | 2019-06-06 11:36 | PRG ---
DATE OF SERVICE: 06/06/2019 SUBJECTIVE: Mr. Doe says he is feeling like he could go home. OBJECTIVE: VITAL SIGNS: Heart rates in 80s, blood pressure 138/100. This is a wrist cuff. Blood pressure late this morning was 103/57, heart rate is in 80s, still in atrial fibrillation. He says he is always in atrial fibrillation. LUNGS: Clear. HEART: Regular rhythm. ABDOMEN: Soft. EXTREMITIES: Without asymmetry. IMPRESSION: 1. Chronic atrial fibrillation with controlled rate after presenting with rapid ventricular response. 2. History of normal coronaries. 3. Obesity with sleep apnea. He says he wears a CPAP. 4. Hypertension. Cardiology has cleared him to go home. I will be happy to follow his sleep apnea if he wants to establish contact with me. All of his physicians are still in the [place] area, but he is transitioning up to this area. Job ID: [id number]
[2019-06-06] MEDS: traMADol HCl 50 MG TAB PO PRN (11:53)
[2019-06-06 12:01] VITALS: TEMP 98.1
--- NOTE | 2019-06-07 05:51 | DIS ---
DATE OF ADMISSION: 06/02/2019 DATE OF DISCHARGE: 06/06/2019 Case of a 53-year-old male with past medical history of morbid obesity, hypertension, and chronic atrial fibrillation, who came to hospital with chest discomfort and palpitation. At the ER, he was diagnosed with AFib and RVR and hypertensive urgency for which the patient was started on IV diltiazem. The patient's rate and high blood pressure were controlled. He was evaluated by examining chair assembler. Medications were optimized. The patient was cleared by Cardiology and now will be discharged home. The patient was oriented about his condition, treatment, and followup plan, prefers to agree and understand. Medication review was done. Prescriptions were sent and the patient was oriented. He will be discharged home with followup with his PCP and examining chair assembler. Job ID: [id number]
[2019-06-07] MEDS ORDERED: Torsemide 10 MG TAB PO SCH (09:00)
--- NOTE | 2019-06-09 09:52 | PQF ---
TONYA MICHEL MALIK MD [id number] CLINICAL DOCUMENTATION CLARIFICATION FORM: POST DISCHARGE Addendum to original discharge summary date: ____ Late entry note date: __ I didn't see the patient since admission. Lucy DATE:06/09/2019 ATTN: HOLLY YEUNG MD Please exercise your independent, professional judgment in responding to the clarification form. Clinical indicators are provided on the bottom of this form for your review Please check appropriate box(s): kindly clarify the diagnosis of pulmonary edema; [ ] Acute pulmonary edema [ ] Chronic pulmonary edema [ ] Acute and chronic pulmonary edema [ ] Other diagnosis [ ] Unable to determine In addition, please specify: Present on Admission (POA): [ ] Yes [ ] No [ ] Unable to determine For continuity of documentation, please document condition throughout progress notes and discharge summary. Thank You. CLINICAL INDICATORS - SIGNS / SYMPTOMS / LABS Chest discomfort-Documented in H&P on 06/02 by Lucy Ferguson MD Pulse rate of 142-Documented in H&P on 06/02 by Lucy Ferguson MD Atrial fibrillation with rapid ventricular response-Documented in H&P on 06/02 by Lucy Ferguson MD Type 2 myocardial infarction-Documented in H&P on 06/02 by Lucy Ferguson MD He presented with complaint of chest discomfort and shortness of breath- Documented in consultation on 06/04 by Solis Johnston Atrial fibrillation probably creating some mild pulmonary edema-Documented in consultation on 06/04 by Solis Johnston Chest x ray suggestive of cardiomegaly perhaps an early increase in interstitial marking-Documented in consultation on 06/04 by Solis Johnston [employer] Atrial fibrillation with rapid ventricular response-Documented in H&P on 06/02 by Lucy Ferguson MD TREATMENTS: Lasix 20 mg IV-Documented in medication snapshot Morphine 4 mg IVP -Documented in medication snapshot [employer] Curtain [employer] Winform Viewer (This form is maintained as a part of the permanent medical record) 2014 [employer]. All Rights Reserved [email or web address]
== END 2019-06-06 15:10 | disposition home or self-care (01) | DRG 281 ==
LOC: ERS 20:22 → ERHOLD 22:13 → CCU 06-03 21:23
PROVIDERS: ADMIT Internal Medicine; ATTEND Internal Medicine
DX: I48.20 Chronic atrial fibrillation, unspecified (principal); I21.A1 Myocardial infarction type 2; Z68.42 Body mass index [BMI] 45.0-49.9, adult; J81.1 Chronic pulmonary edema; I16.0 Hypertensive urgency; E66.01 Morbid (severe) obesity due to excess calories; E03.9 Hypothyroidism, unspecified; I25.10 Atherosclerotic heart disease of native coronary artery without angina pectoris; I51.7 Cardiomegaly; G47.33 Obstructive sleep apnea (adult) (pediatric); G89.4 Chronic pain syndrome; N18.2 Chronic kidney disease, stage 2 (mild); I12.9 Hypertensive chronic kidney disease with stage 1 through stage 4 chronic kidney disease, or unspecified chronic kidney disease; Z88.1 Allergy status to other antibiotic agents; Z98.890 Other specified postprocedural states
CPT/HCPCS: 36415; 71045; 74019; 80048; 80053; 80162; 82550; 83735; 83880; 84100; 84443; 84484; 85025; 94660; 96365; 96366; 96376; J0360; J1160; J1940; J2270; J2405; J2550; J3490; Q0163